=== PATIENT | female | born 1985 | race Two or more races ===

== ENCOUNTER 2016-11-24 16:32 | Outpatient (CLI) | payer BC, OTHER ==
[~2016-11-24] VITALS: Ht 165.1 cm; Wt 95.5 kg
[~2016-11-24 16:32] MED LIST: IRON1TAB62 PO; PREN1TAB27 PO
[2016-11-24 17:05] VITALS: BP 132/78
[2016-11-24 17:55] LABS: ASPARTATE AMINO TRANSFERASE 42 U/L (15-37); BLOOD UREA NITROGEN 15 mg/dL (7-18)
[2016-11-24 18:01] LABS: HEMOGLOBIN 10.9 g/dL (11.7-16.4)
[2016-11-24 18:02] LABS: DIFF TOTAL CELLS COUNTED 100 CELL DIFF
[2016-11-24 18:04] LABS: VERIFY COUNTS? YES
[2016-11-24 18:05] LABS: GIANT PLATELETS 2+
== END 2016-11-24 19:08 | disposition home or self-care (01) ==
LOC: LDOP 16:32
PROVIDERS: ATTEND Obstetrics & Gynecology
DX: O13.3 Gestational [pregnancy-induced] hypertension without significant proteinuria, third trimester (principal); O24.113 Pre-existing type 2 diabetes mellitus, in pregnancy, third trimester; Z3A.36 36 weeks gestation of pregnancy
CPT/HCPCS: 36415; 59025; 80053; 81001; 81050; 82248; 82570; 84156; 84550; 85025; 99211; G0463

== ENCOUNTER 2016-11-26 10:54 | Outpatient (CLI) | payer OTHER ==
[~2016-11-26] VITALS: Ht 165.1 cm; Wt 95.5 kg
[2016-11-26 11:16] VITALS: BP 136/79
== END 2016-11-26 12:50 | disposition home or self-care (01) ==
LOC: LDOP 10:54
PROVIDERS: ATTEND Obstetrics & Gynecology
DX: O24.419 Gestational diabetes mellitus in pregnancy, unspecified control (principal); O12.03 Gestational edema, third trimester; O13.3 Gestational [pregnancy-induced] hypertension without significant proteinuria, third trimester; Z3A.36 36 weeks gestation of pregnancy
CPT/HCPCS: 59025; 99211; G0463

== ENCOUNTER 2016-11-30 07:08 | Inpatient (IN) | payer OTHER ==
[~2016-11-30] VITALS: Ht 165.1 cm; Wt 93.2 kg
[2016-11-30] MEDS: D5%-LACTATED RINGERS 1,000 ML IV SCH ×4 (08:19→22:58)
[2016-11-30] MEDS ORDERED: OXYTOCIN 30U/ 0.9% NaCL 500ML 500 ML IV ONE (08:19)
[2016-11-30] MEDS ORDERED: OXYTOCIN 30U/ 0.9% NaCL 500ML 500 ML IV PRN (08:19)
[2016-11-30] MEDS ORDERED: FENTANYL PF 100 MCG/2ML IV PRN (08:30)
[2016-11-30] MEDS ORDERED: TERBUTALINE 1 MG/ML, 1ML IVPush PRN (08:30)
[2016-11-30] MEDS ORDERED: ONDANSETRON 2MG/ML, 2ML IVPush PRN (08:30)
[2016-11-30] MEDS ORDERED: FENTANYL PF 100 MCG/2ML IVPush PRN (08:30)
[2016-11-30] MEDS ORDERED: OXYTOCIN 30U/ 0.9% NaCL 500ML 500 ML ONE ×2 (08:34→23:06)
[2016-11-30] MEDS: LACTATED RINGERS 1,000 ML IV SCH ×4 (08:40→23:17)
[2016-11-30] MEDS ORDERED: PENICILLIN GK 5,000,000 UNITS in DEXTROSE 5% 100 ML IVPB ONE (09:00)
[2016-11-30 09:01] VITALS: BP 145/97
[2016-11-30 09:42] LABS: HEMOGLOBIN 11.2 g/dL (11.7-16.4)
[2016-11-30 10:58] LABS: ASPARTATE AMINO TRANSFERASE 27 U/L (15-37); BLOOD UREA NITROGEN 13 mg/dL (7-18)
[2016-11-30] MEDS ORDERED: FENTANYL/BUPIV./NS/PF 250 ML EPIDCONT ONE ×2 (12:23→12:25)
[2016-11-30] MEDS ORDERED: LIDOCAINE/PF 1.5%-EPI 1:200K, 30ML ONE ×2 (12:24→12:25)
[2016-11-30] MEDS ORDERED: LIDOCAINE 1%, 20ML ONE (12:25)
[2016-11-30] MEDS: PENICILLIN GK 2,500,000 UNITS in DEXTROSE 5% 100 ML IVPB SCH ×3 (13:15→20:46)
[2016-11-30] MEDS ORDERED: CALCIUM CARBONATE 500 MG TAB.CHEW ONE (18:18)
[2016-11-30] MEDS ORDERED: CALCIUM CARBONATE 500 MG TAB.CHEW PO PRN (18:30)
[2016-11-30] MEDS: FENTANYL/BUPIV./NS/PF 250 ML EPIDCONT SCH (20:42)
[2016-11-30] MEDS ORDERED: NALOXONE 0.4 MG/ML, 1ML IVPush PRN (21:00)
[2016-11-30] MEDS ORDERED: LACTATED RINGERS 1,000 ML IVBOLUS PRN (21:00)
[2016-11-30] MEDS ORDERED: EPHEDRINE 50 MG/ML, 1ML IVPush PRN (21:00)
[2016-11-30] MEDS ORDERED: NEWBORN KIT ONE (22:32)
[2016-11-30] MEDS ORDERED: CARBOPROST TROMETHAMINE 250 MCG/ML, 1ML IM ONE ×2 (23:20→23:30)
[2016-11-30] MEDS: OXYTOCIN 30U/ 0.9% NaCL 500ML 500 ML IV SCH (23:47)
[2016-12-01] MEDS ORDERED: ACETAMINOPHEN 325 MG TABLET PO PRN ×2
[2016-12-01] MEDS ORDERED: IBUPROFEN 600 MG TABLET PO PRN
[2016-12-01] MEDS: D5%-LACTATED RINGERS 1,000 ML IV SCH ×2 (00:19→05:38)
[2016-12-01] MEDS: PENICILLIN GK 2,500,000 UNITS in DEXTROSE 5% 100 ML IVPB SCH (00:30)
[2016-12-01 01:10] VITALS: BP 133/94
[2016-12-01 03:10] VITALS: BP 133/91
[2016-12-01] MEDS: HYDROcodone/APAP 5/325 TABLET PO PRN ×4 (03:10→23:07)
[2016-12-01] MEDS: LACTATED RINGERS 1,000 ML IV SCH (03:11)
[2016-12-01] MEDS ORDERED: MISOPROSTOL 200 MCG TABLET PR ONE (04:30)
[2016-12-01 07:30] LABS: DIFF TOTAL CELLS COUNTED 100 CELL DIFF
[2016-12-01 07:40] VITALS: BP 116/79
[2016-12-01 07:57] LABS: ANISOCYTOSIS 1+
[2016-12-01 07:58] LABS: VERIFY COUNTS? YES
[2016-12-01] MEDS: PRENATAL VIT/IRON/FA 1 EACH TABLET PO SCH (09:00)
[2016-12-01] MEDS: OXYTOCIN 30U/ 0.9% NaCL 500ML 500 ML IV SCH (09:47)
[2016-12-01] MEDS: FERROUS GLUCONATE 324 MG TABLET PO SCH ×2 (11:00→17:55)
[2016-12-01 12:10] VITALS: BP 133/77
[2016-12-01] MEDS ORDERED: DIPH,PERTUSS(ACELL),TET VAC/PF NC IM-VACC ONE (13:00)
[2016-12-01] MEDS ORDERED: MEASLES,MUMPS&RUBELLA VACC/PF 0.5 ML SQ-VACC ONE (13:00)
[2016-12-01 16:25] VITALS: BP 128/75
[2016-12-01] MEDS: FENTANYL/BUPIV./NS/PF 250 ML EPIDCONT SCH (17:32)
[2016-12-01 19:37] VITALS: BP 133/91
[2016-12-02 03:10] VITALS: BP 112/66
[2016-12-02] MEDS: HYDROcodone/APAP 5/325 TABLET PO PRN ×3 (04:27→21:31)
[2016-12-02] MEDS: FERROUS GLUCONATE 324 MG TABLET PO SCH ×2 (08:00→17:31)
[2016-12-02 08:05] VITALS: BP 127/87
[2016-12-02] MEDS: PRENATAL VIT/IRON/FA 1 EACH TABLET PO SCH (09:00)
[2016-12-02 12:15] VITALS: BP 125/86
[2016-12-02] MEDS: FENTANYL/BUPIV./NS/PF 250 ML EPIDCONT SCH (14:22)
[2016-12-02 16:05] VITALS: BP 130/83
[2016-12-02] MEDS: DOCUSATE 100 MG CAPSULE PO PRN (21:29)
[2016-12-02 21:36] VITALS: BP 125/83
[2016-12-03 00:24] VITALS: BP 119/72
[2016-12-03] MEDS: HYDROcodone/APAP 5/325 TABLET PO PRN ×2 (04:14→10:09)
[2016-12-03 04:19] VITALS: BP 131/88
[2016-12-03 07:38] VITALS: BP 124/74
[2016-12-03 07:43] VITALS: BP 129/87
[2016-12-03] MEDS: DOCUSATE 100 MG CAPSULE PO PRN (08:42)
[2016-12-03] MEDS: PRENATAL VIT/IRON/FA 1 EACH TABLET PO SCH (08:42)
[2016-12-03] MEDS: FERROUS GLUCONATE 324 MG TABLET PO SCH (08:42)
[2016-12-03] MEDS ORDERED: OXYC-302 PO (10:29)
[2016-12-03] MEDS ORDERED: IBUP-1222 PO (10:30)
[2016-12-03] MEDS ORDERED: SENN8.6T4 PO (10:31)
== END 2016-12-03 12:01 | disposition home or self-care (01) | DRG 775 ==
LOC: LDOP 07:08 → LDIP 07:44 → 2NW 12-01 00:40
PROVIDERS: ADMIT Obstetrics & Gynecology; ATTEND Obstetrics & Gynecology
PROC: 0KQM0ZZ Repair Perineum Muscle, Open Approach (ICD-10-PCS; principal; 2016-11-30)
PROC: 10E0XZZ Delivery of Products of Conception, External Approach (ICD-10-PCS; 2016-11-30)
PROC: 3E033VJ Introduction of Other Hormone into Peripheral Vein, Percutaneous Approach (ICD-10-PCS; 2016-11-30)
PROC: 00HU33Z Insertion of Infusion Device into Spinal Canal, Percutaneous Approach (ICD-10-PCS; 2016-11-30)
PROC: 3E0R3CZ (ICD-10-PCS; 2016-11-30)
PROC: 0T9B70Z Drainage of Bladder with Drainage Device, Via Natural or Artificial Opening (ICD-10-PCS; 2016-11-30)
DX: O24.420 Gestational diabetes mellitus in childbirth, diet controlled (principal); Z37.0 Single live birth; O42.92 Full-term premature rupture of membranes, unspecified as to length of time between rupture and onset of labor; O99.824 Streptococcus B carrier state complicating childbirth; O13.4 Gestational [pregnancy-induced] hypertension without significant proteinuria, complicating childbirth; Z3A.37 37 weeks gestation of pregnancy; Z91.041 Radiographic dye allergy status; O70.1 Second degree perineal laceration during delivery; Z23 Encounter for immunization
CPT/HCPCS: 36415; 80053; 81001; 82962; 84550; 85025; 86850; 86900; 90715; J2540; J3490; J2590; J3010; J7120; J7121

== ENCOUNTER 2017-04-15 09:21 | Emergency (ER) | payer OTHER ==
[~2017-04-15] VITALS: Ht 165.1 cm; Wt 79.8 kg
[~2017-04-15 09:21] MED LIST changes: +IBUP-1222 PO; +OXYC-302 PO; +SENN8.6T4 PO
[2017-04-15 09:24] VITALS: BP 149/100
[2017-04-15] MEDS ORDERED: DIAZEPAM 5 MG TABLET ONE (09:54)
[2017-04-15] MEDS ORDERED: KETOROLAC 30 MG/1 ML ONE (09:54)
[2017-04-15] MEDS ORDERED: DIAZEPAM 5 MG TABLET PO ONE (10:00)
[2017-04-15] MEDS ORDERED: KETOROLAC 30 MG/1 ML IM ONE (10:00)
== END 2017-04-15 10:53 | disposition home or self-care (01) ==
LOC: ED 10:34
DX: S16.1XXA Strain of muscle, fascia and tendon at neck level, initial encounter (principal); M54.5 Low back pain; M19.90 Unspecified osteoarthritis, unspecified site; V43.52XA Car driver injured in collision with other type car in traffic accident, initial encounter; Y93.89 Activity, other specified; Y99.8 Other external cause status; Y92.488 Other paved roadways as the place of occurrence of the external cause
CPT/HCPCS: 72020; 72050; 72072; 72110; 96372; 99284; J1885

== ENCOUNTER → 2017-06-12 | Outpatient (CLI) | payer OTHER ==
[~2017-06-12] MED LIST changes: +SENN-87 PO; -SENN8.6T4 PO
== END | disposition home or self-care (01) ==
LOC: CFH 06:52
PROVIDERS: ATTEND Chiropractor
DX: M51.27 Other intervertebral disc displacement, lumbosacral region (principal); M48.07 Spinal stenosis, lumbosacral region; M79.605 Pain in left leg
CPT/HCPCS: 72146; 72148

== ENCOUNTER → 2017-09-05 | Outpatient (CLI) | payer OTHER ==
[2017-09-05 08:33] LABS: BASOPHILS # (AUTO) 0.04 x10^3/uL (0-0.1); BASOPHILS % (AUTO) 0 % (0-1); EOSINOPHILS # (AUTO) 0.14 x10^3/uL (0-0.4); EOSINOPHILS % (AUTO) 1 % (1-7); LYMPHOCYTES # (AUTO) 3.12 x10^3/uL (1-3.4); LYMPHOCYTES % (AUTO) 28 % (22-44); MD NO; MEAN CORPUSCULAR HEMOGLOBIN 25.3 pg (27.0-34.8); MEAN CORPUSCULAR HGB CONC 32.8 g/dL (32.4-35.8); MEAN CORPUSCULAR VOLUME 77.3 fL (80-100); MEAN PLATELET VOLUME 9.1 fL (7.4-10.4); MICROSCOPIC NOT IND; MONOCYTES # (AUTO) 0.46 x10^3/uL (0.2-0.8); MONOCYTES % (AUTO) 4 % (2-9); NEUTROPHILS # (AUTO) 7.47 x10^3/uL (1.8-6.8); NEUTROPHILS % (AUTO) 67 % (42-75); PLATELET COUNT 289 x10^3/uL (130-400); RED BLOOD COUNT 4.96 x10^6/uL (3.82-5.3); RED CELL DISTRIBUTION WIDTH 16.9 % (9.6-15.2)
[2017-09-05 08:45] LABS: ALANINE AMINOTRANSFERASE 21 U/L (12-78); ALBUMIN 3.9 g/dL (3.4-5.0); ANION GAP 5 mmol/L (5-15); CALCIUM 8.7 mg/dL (8.5-10.1); CHLORIDE 106 mmol/L (98-107); CREATININE 0.75 mg/dL (0.55-1.02)
[2017-09-05 08:56] LABS: ALKALINE PHOSPHATASE 103 U/L (45-117); BILIRUBIN,TOTAL 0.4 mg/dL (0.2-1.0); CHOL/HDL RATIO 3.7; CHOLESTEROL, TOTAL 147 mg/dL (140-239); HDL CHOL % 27 % (28-40); HDL CHOLESTEROL (DIRECT) 40 mg/dL (40-60); LDL CHOLESTEROL,CALCULATED 73 mg/dL (54-169); LDL/HDL RATIO 1.8 (0.5-3.0); TOTAL PROTEIN 8.2 g/dL (6.4-8.2); TRIGLYCERIDES 170 mg/dL (50-200); VLDL CHOLESTEROL 34 mg/dL (0-25)
== END ==
LOC: CVU 06:56
PROVIDERS: ATTEND Family Medicine
DX: R01.1 Cardiac murmur, unspecified (principal)
CPT/HCPCS: 36415; 80053; 80061; 81003; 84443; 85025; 93306

== ENCOUNTER 2018-09-15 11:54 | Inpatient (IN) | payer OTHER ==
[~2018-09-15] VITALS: Ht 165.1 cm; Wt 85.1 kg
[~2018-09-15 11:54] MED LIST changes: -SENN-87 PO; +SENN-88 PO
--- NOTE | 2018-09-15 12:08 | NUR ---
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 PT WEARS EYE GLASSES AND DOES NOT HAVE THEM WITH HER.
[2018-09-15] MEDS ORDERED: BIRTH CONTROL PILL (12:32)
--- NOTE | 2018-09-15 12:33 | NUR ---
FIRST CONTACT WITH PT. PT C/O ALARCON X 2 WEEKS WITH NAUSEA/DIZZINESS WITH DOUBLE VISION SINCE YESTERDAY. PT DENIES V/D AT THIS TIME. PT AOX4. RESPS EVEN AND UNLABORED. NEURO INTACT. NO HX OF CARDIAC. PT'S FAMILY AT BEDSIDE. PA AT BEDSIDE TO EXPLAIN POCT AT THIS TIME. BP AND SPO2 MONITORS IN PLACE.
--- NOTE | 2018-09-15 12:57 | NUR ---
EDMD AT BEDSIDE TO ASSESS AT THIS TIME.
[2018-09-15] MEDS ORDERED: ONDANSETRON 2MG/ML, 2ML ONE (13:08)
[2018-09-15] MEDS ORDERED: MORPHINE SULFATE 4 MG/ML, 1ML ONE ×2 (13:08→14:56)
[2018-09-15] MEDS: MORPHINE SULFATE 4 MG/ML, 1ML IVPush PRN ×5 (13:11→23:30)
--- NOTE | 2018-09-15 13:18 | NUR ---
PRECEPTOR NOTE: PIV PLACED. PT MEDICATED PER EMAR, TOLERATED WELL. PT A&O, RESPS EVEN AND UNLABORED. AWAITING MRI AND DISPO AT THIS TIME.
[2018-09-15 13:22] LABS: BASOPHILS # (AUTO) 0.08 x10^3/uL (0-0.1); BASOPHILS % (AUTO) 1 % (0-1); EOSINOPHILS % (AUTO) 1 % (1-7); LYMPHOCYTES # (AUTO) 2.84 x10^3/uL (1-3.4); LYMPHOCYTES % (AUTO) 31 % (22-44); MD NO; MEAN CORPUSCULAR HEMOGLOBIN 28.8 pg (27.0-34.8); MEAN CORPUSCULAR HGB CONC 33.8 g/dL (32.4-35.8); MEAN CORPUSCULAR VOLUME 85.1 fL (80-100); MEAN PLATELET VOLUME 8.9 fL (7.4-10.4); MONOCYTES # (AUTO) 0.43 x10^3/uL (0.2-0.8); MONOCYTES % (AUTO) 5 % (2-9); NEUTROPHILS # (AUTO) 5.66 x10^3/uL (1.8-6.8); NEUTROPHILS % (AUTO) 62 % (42-75); PLATELET COUNT 283 x10^3/uL (130-400); RED BLOOD COUNT 4.93 x10^6/uL (3.82-5.3); RED CELL DISTRIBUTION WIDTH 13.5 % (9.6-15.2)
--- NOTE | 2018-09-15 13:22 | NUR ---
mri paged to collect pt.
[2018-09-15] MEDS ORDERED: ONDANSETRON 2MG/ML, 2ML IVPush ONE (13:30)
--- NOTE | 2018-09-15 13:30 | NUR ---
PT TO MRI.
[2018-09-15 13:33] LABS: ALBUMIN 3.8 g/dL (3.4-5.0); ANION GAP 6 mmol/L (5-15); C-REACTIVE PROTEIN, QUANT 0.92 mg/dL (0.02-0.49); CALCIUM 8.9 mg/dL (8.5-10.1); CHLORIDE 109 mmol/L (98-107)
[2018-09-15 13:38] LABS: CREATININE 0.72 mg/dL (0.55-1.02)
--- NOTE | 2018-09-15 14:07 | NUR ---
pt remains in MRI
[2018-09-15] MEDS ORDERED: GADOBUTROL 7.5 MMOL/7.5 ML PFS ONE (14:19)
--- NOTE | 2018-09-15 14:42 | NUR ---
PT BACK TO ROOM FROM MRI. PT STATES PAIN LEVEL 6/10 NOW. PT REQUESTING PAIN MED. PA AND EDMD NOTIFIED. PT AOX4. RESPS EVEN AND UNLABORED.
--- NOTE | 2018-09-15 14:59 | NUR ---
PT A&O, RESPS EVEN AND UNLABORED. PT MEDICATED PER EMAR, TOLERATED WELL. AWAITING MRI RESULTS AND DISPO.
--- NOTE | 2018-09-15 15:22 | NUR ---
PT RESTING IN [facility] [place] PT AOX4. RESPS EVEN AND UNLABORED. LAB AT BEDSIDE. BP AND SPO2 MONITORS IN PLACE. CALL LIGHT WITHIN REACH. ALL RESULTS BACK. AWAITING ADMIT.
--- NOTE | 2018-09-15 15:30 | NUR ---
HOSPITALIST AT BEDSIDE TO ADMIT PT. PT A&O, RESPS EVEN AND UNLABORED. JUAN J.
--- NOTE | 2018-09-15 15:41 | NUR ---
REPORT CALLED TO RECEIVING KIM MENJIVAR PT AWAITING TRANSPORT TO ROOM 339.
--- NOTE | 2018-09-15 15:54 | NUR ---
CT CAME TO COLLECT PT , PT REPORTS ANAPHYLACTIC RXN TO CT CONTRAST (2 YEARS AGO). ARCADIO VANEGAS NOTIFIED. CTA TO BE CANCELLED AND REPLACED WITH MRA ORDER. CT CALLED TO NOTIFY.
[2018-09-15] MEDS ORDERED: ENALAPRILAT 1.25 MG/ML, 2ML IVPush PRN (16:00)
[2018-09-15] MEDS ORDERED: BISACODYL 10 MG SUPP PR PRN (16:00)
[2018-09-15] MEDS ORDERED: KETOROLAC 30 MG/1 ML IV PRN (16:00)
[2018-09-15] MEDS ORDERED: POLYETHYLENE GLYCOL 17 GM PACKET PO PRN (16:00)
[2018-09-15] MEDS ORDERED: LORazepam 2 MG/ML, 1ML IVPush PRN (16:00)
[2018-09-15] MEDS ORDERED: LABETALOL 5MG/ML, 20ML IVPush PRN (16:00)
[2018-09-15] MEDS ORDERED: ONDANSETRON ODT 4 MG PO PRN (16:00)
[2018-09-15] MEDS ORDERED: BUTALB/APAP/CAFFEINE 50MG/325MG/40MG PO PRN (16:00)
[2018-09-15] MEDS ORDERED: ONDANSETRON 2MG/ML, 2ML IVPush PRN (16:00)
[2018-09-15] MEDS ORDERED: ACETAMINOPHEN 325 MG TABLET PO PRN (16:00)
[2018-09-15] MEDS ORDERED: METOCLOPRAMIDE 5 MG/ML, 2ML IVPush PRN (16:00)
--- NOTE | 2018-09-15 16:02 | NUR ---
PT REPORTS PAIN LEVEL IMPROVED TO LEVEL 2/10 FOLLOWING SECOND DOSE MORPHINE. PT A&O, RESPS EVEN AND UNLABORED, NADN. PT UPDATED WITH POC. PT TRANSPORTED UPSTAIRS WITH CELL PHONE AND CLOTHES, DENIES HAVING ANY OTHER BELONGINGS.
--- NOTE | 2018-09-15 16:05 | NUR ---
LATE ENTRY FOR 1605: PT TRANSPORTED TO ROOM 339 WITHOUT INCIDENT. RECEIVING KIM GOULD CALLED TO UPDATE WITH PT REPORT ALLERGY TO CT CONTRAST AND ANTICIPATED PLAN FOR MRA INSTEAD OF CT.
[2018-09-15] MEDS ORDERED: DIPHENHYDRAMINE 50 MG/ML, 1ML IVPush PRN (16:30)
[2018-09-15] MEDS ORDERED: GADOBUTROL 7.5 MMOL/7.5 ML VIAL ONE (17:02)
[2018-09-15 17:40] VITALS: BP 136/93
[2018-09-15 19:33] VITALS: BP 138/88
[2018-09-16 01:04] VITALS: BP 138/87
[2018-09-16 04:41] LABS: BASOPHILS # (AUTO) 0.07 x10^3/uL (0-0.1); BASOPHILS % (AUTO) 1 % (0-1); EOSINOPHILS # (AUTO) 0.17 x10^3/uL (0-0.4); EOSINOPHILS % (AUTO) 2 % (1-7); LYMPHOCYTES # (AUTO) 2.81 x10^3/uL (1-3.4); LYMPHOCYTES % (AUTO) 36 % (22-44); MD NO; MEAN CORPUSCULAR HEMOGLOBIN 28.7 pg (27.0-34.8); MEAN CORPUSCULAR HGB CONC 33.7 g/dL (32.4-35.8); MEAN CORPUSCULAR VOLUME 85.2 fL (80-100); MEAN PLATELET VOLUME 9.1 fL (7.4-10.4); MONOCYTES # (AUTO) 0.47 x10^3/uL (0.2-0.8); MONOCYTES % (AUTO) 6 % (2-9); NEUTROPHILS % (AUTO) 55 % (42-75); PLATELET COUNT 269 x10^3/uL (130-400); RED BLOOD COUNT 4.41 x10^6/uL (3.82-5.3); RED CELL DISTRIBUTION WIDTH 13.9 % (9.6-15.2)
[2018-09-16 04:51] LABS: ANION GAP 6 mmol/L (5-15); CALCIUM 8.5 mg/dL (8.5-10.1); CHLORIDE 106 mmol/L (98-107)
[2018-09-16 04:52] LABS: CREATININE 0.66 mg/dL (0.55-1.02)
[2018-09-16] MEDS: ASPIRIN 325 MG TABLET EC PO SCH (05:58)
[2018-09-16 06:54] VITALS: BP 137/86
[2018-09-16] MEDS: MORPHINE SULFATE 4 MG/ML, 1ML IVPush PRN (08:08)
[2018-09-16] MEDS: DOCUSATE 100 MG CAPSULE PO SCH (08:08)
[2018-09-16] MEDS ORDERED: VALPROATE SODIUM 1,000 MG in DEXTROSE 5% 100 ML IV ONE (12:00)
[2018-09-16] MEDS ORDERED: VALPROATE SODIUM 100 MG/ML, 5ML IVPB ONE (12:00)
[2018-09-16 12:53] VITALS: BP 143/87
[2018-09-16 19:44] VITALS: BP 133/89
[2018-09-16] MEDS ORDERED: VALPROATE SODIUM 100 MG/ML, 5ML IVPB SCH (21:00)
[2018-09-16] MEDS: VALPROATE SODIUM 500 MG in DEXTROSE 5% 100 ML IV SCH (21:32)
[2018-09-17 00:50] VITALS: BP 150/90
[2018-09-17] MEDS: ASPIRIN 325 MG TABLET EC PO SCH (06:26)
[2018-09-17 06:54] VITALS: BP 125/82
[2018-09-17] MEDS: VALPROATE SODIUM 500 MG in DEXTROSE 5% 100 ML IV SCH (08:17)
[2018-09-17] MEDS: DOCUSATE 100 MG CAPSULE PO SCH (08:17)
[2018-09-17] MEDS ORDERED: ACET325T14 PO (10:27)
[2018-09-17] MEDS ORDERED: VALP250C59 PO (10:27)
[2018-09-17 14:12] LABS: RAPID PLASMA REAGIN Nonreactive (Nonreactive)
[2018-09-18 12:43] LABS: ANA SCREEN POSITIVE (Negative)
[2018-09-18 12:44] LABS: ANTI-NUCLEAR ANTIBODY PATTERN HOMOGENOUS
== END 2018-09-17 12:15 | disposition home or self-care (01) | DRG 123 ==
LOC: ED 15:05 → 3NW 15:14 → DCLOUNGE 09-17 11:58
PROVIDERS: ADMIT Hospitalist; ATTEND Hospitalist
DX: H49.21 Sixth [abducent] nerve palsy, right eye (principal); G35 Multiple sclerosis; I10 Essential (primary) hypertension; J00 Acute nasopharyngitis [common cold]; K59.00 Constipation, unspecified; Z80.51 Family history of malignant neoplasm of kidney; Z83.3 Family history of diabetes mellitus; Z86.32 Personal history of gestational diabetes
CPT/HCPCS: 36415; 70543; 70544; 70546; 70547; 70551; 70553; 80048; 82040; 82164; 84703; 85025; 85549; 85651; 86038; 86039; 86140; 86147; 86256; 86592; 96374; 96375; 96376; A9585; G0378; J1885; J2405; J1200; J2060; J2765

== ENCOUNTER → 2018-09-18 | Outpatient (CLI) | payer OTHER ==
[~2018-09-18] MED LIST changes: +ACET325T14 PO; +BIRTH CONTROL PILL; +VALP250C59 PO
[2018-09-18 12:10] LABS: BASOPHILS % (AUTO) 1 % (0-1); EOSINOPHILS # (AUTO) 0.06 x10^3/uL (0-0.4); EOSINOPHILS % (AUTO) 1 % (1-7); LYMPHOCYTES # (AUTO) 2.54 x10^3/uL (1-3.4); LYMPHOCYTES % (AUTO) 24 % (22-44); MD NO; MEAN CORPUSCULAR HEMOGLOBIN 27.5 pg (27.0-34.8); MEAN CORPUSCULAR HGB CONC 32.2 g/dL (32.4-35.8); MEAN CORPUSCULAR VOLUME 85.4 fL (80-100); MEAN PLATELET VOLUME 8.8 fL (7.4-10.4); MONOCYTES # (AUTO) 0.37 x10^3/uL (0.2-0.8); MONOCYTES % (AUTO) 4 % (2-9); NEUTROPHILS # (AUTO) 7.51 x10^3/uL (1.8-6.8); NEUTROPHILS % (AUTO) 71 % (42-75); PLATELET COUNT 303 x10^3/uL (130-400); RED BLOOD COUNT 4.85 x10^6/uL (3.82-5.3); RED CELL DISTRIBUTION WIDTH 13.5 % (9.6-15.2)
[2018-09-18 12:25] LABS: ALANINE AMINOTRANSFERASE 70 U/L (12-78); ANION GAP 8 mmol/L (5-15); CALCIUM 9.2 mg/dL (8.5-10.1); CHLORIDE 104 mmol/L (98-107)
[2018-09-18 12:36] LABS: ALKALINE PHOSPHATASE 115 U/L (45-117); BILIRUBIN,TOTAL 0.5 mg/dL (0.2-1.0); CREATININE 0.67 mg/dL (0.55-1.02); FREE T4 (FREE THYROXINE) 0.95 ng/dL (0.76-1.46); TOTAL PROTEIN 8.5 g/dL (6.4-8.2)
[2018-09-18 13:11] LABS: HEMOGLOBIN A1C 5.4 % (4.2-6.3)
[2018-09-20 18:23] LABS: ANA SCREEN POSITIVE (Negative)
== END | disposition home or self-care (01) ==
LOC: LAB 11:43
PROVIDERS: ATTEND Ophthalmology
DX: H50.89 Other specified strabismus (principal); H53.2 Diplopia; H49.00 Third [oculomotor] nerve palsy, unspecified eye
CPT/HCPCS: 36415; 80053; 82164; 83036; 83519; 83520; 84439; 84443; 84445; 84480; 85025; 85549; 86038; 86039

== ENCOUNTER 2018-11-27 14:43 | Emergency (ER) | payer OTHER ==
[~2018-11-27] VITALS: Ht 165.1 cm; Wt 83.0 kg
--- NOTE | 2018-11-27 15:20 | NUR ---
THIS IS A 33 YO FEMALE WHO PRESENTS TO THE ER C/O MIDLINE NOSE TO RIGHT CHEEK DIMINISHED SENSATION. PT STATES SHE CAN FEEL PRESSURE BUT CANNOT DISTINGUISH BETWEEN SHARP AND DULL SENSATIONS. PT HAS FACIAL SYMMETRY AND IS ABLE TO MOVE HER FACE W/O DIFFICULTY. PT AO X 4. SKIN PWD. RESP EVEN AND EQAUL. PT ON CONT BP AND O2 MONIOTRS. CALL LIGHT WITHIN REACH. WILL CONT TO MONITOR PT.
[2018-11-27 15:59] LABS: BASOPHILS # (AUTO) 0.06 x10^3/uL (0-0.1); BASOPHILS % (AUTO) 1 % (0-1); EOSINOPHILS % (AUTO) 2 % (1-7); LYMPHOCYTES # (AUTO) 3.16 x10^3/uL (1-3.4); LYMPHOCYTES % (AUTO) 32 % (22-44); MD NO; MEAN CORPUSCULAR HEMOGLOBIN 29.2 pg (27.0-34.8); MEAN CORPUSCULAR HGB CONC 34.2 g/dL (32.4-35.8); MEAN CORPUSCULAR VOLUME 85.2 fL (80-100); MEAN PLATELET VOLUME 9.2 fL (7.4-10.4); MONOCYTES # (AUTO) 0.41 x10^3/uL (0.2-0.8); MONOCYTES % (AUTO) 4 % (2-9); NEUTROPHILS # (AUTO) 6.19 x10^3/uL (1.8-6.8); NEUTROPHILS % (AUTO) 62 % (42-75); PLATELET COUNT 280 x10^3/uL (130-400); RED BLOOD COUNT 4.71 x10^6/uL (3.82-5.3)
[2018-11-27 16:08] LABS: ALANINE AMINOTRANSFERASE 21 U/L (12-78); ALBUMIN 3.9 g/dL (3.4-5.0); ANION GAP 6 mmol/L (5-15); CHLORIDE 109 mmol/L (98-107); CREATININE 0.77 mg/dL (0.55-1.02)
--- NOTE | 2018-11-27 16:10 | NUR ---
PT TO MRI VIA [facility] AT THIS TIME.
[2018-11-27] MEDS ORDERED: SODIUM CHLORIDE FLUSH 10ML SYR IVF ONE (16:30)
[2018-11-27 16:33] LABS: BILIRUBIN,TOTAL 0.3 mg/dL (0.2-1.0)
[2018-11-27 16:34] LABS: ALKALINE PHOSPHATASE 77 U/L (45-117); FOLATE LEVEL 15.9 ng/mL (3.1-17.5); TOTAL PROTEIN 7.7 g/dL (6.4-8.2)
[2018-11-27] MEDS ORDERED: GADOBUTROL 7.5 MMOL/7.5 ML PFS ONE (16:51)
[2018-11-27 16:55] LABS: HCT (SEDRATE) 40.2 % (34.6-47.8)
--- NOTE | 2018-11-27 17:27 | NUR ---
HILARY ARRIAGA AT BEDSIDE FOR RECHECK/EXPLANATION OF RESULTS. PT CURRENTLY RESTING ON GURNEY. NAD NOTED. SKIN PWD. RESP EVEN AND EQUAL. CALL LIGHT WITHIN REACH. WILL CONT TO MONITOR PT.
[2018-11-27 18:14] VITALS: BP 137/84
[2018-11-28 14:38] LABS: RAPID PLASMA REAGIN Nonreactive (Nonreactive)
[2018-11-29 18:10] LABS: ANA SCREEN POSITIVE (Negative)
[2018-11-29 18:11] LABS: ANTI-NUCLEAR ANTIBODY PATTERN HOMOGENOUS
== END 2018-11-27 18:16 | disposition home or self-care (01) ==
LOC: ED 17:39
DX: S04 Injury of cranial nerve (principal); M19.90 Unspecified osteoarthritis, unspecified site; I10 Essential (primary) hypertension; Z88.8 Allergy status to other drugs, medicaments and biological substances; X58.XXXA Exposure to other specified factors, initial encounter; Y93.89 Activity, other specified; Y92.89 Other specified places as the place of occurrence of the external cause; Y99.8 Other external cause status
CPT/HCPCS: 36415; 70543; 70553; 80053; 82164; 82607; 82746; 82787; 83520; 85025; 85549; 85651; 86038; 86140; 86147; 86256; 86480; 86592; 86618; 86780; 99284; A9585

== ENCOUNTER → 2019-01-15 | Outpatient (CLI) | payer OTHER ==
[2019-01-15 07:29] LABS: BASOPHILS # (AUTO) 0.07 x10^3/uL (0-0.1); BASOPHILS % (AUTO) 1 % (0-1); EOSINOPHILS # (AUTO) 0.29 x10^3/uL (0-0.4); EOSINOPHILS % (AUTO) 3 % (1-7); LYMPHOCYTES # (AUTO) 2.69 x10^3/uL (1-3.4); LYMPHOCYTES % (AUTO) 28 % (22-44); MD NO; MEAN CORPUSCULAR HGB CONC 33.1 g/dL (32.4-35.8); MEAN CORPUSCULAR VOLUME 87.8 fL (80-100); MEAN PLATELET VOLUME 8.3 fL (7.4-10.4); MONOCYTES # (AUTO) 0.63 x10^3/uL (0.2-0.8); MONOCYTES % (AUTO) 7 % (2-9); NEUTROPHILS # (AUTO) 5.97 x10^3/uL (1.8-6.8); NEUTROPHILS % (AUTO) 62 % (42-75); PLATELET COUNT 275 x10^3/uL (130-400); RED CELL DISTRIBUTION WIDTH 13.5 % (9.6-15.2)
[2019-01-15 07:38] LABS: ANION GAP 10 mmol/L (5-15); CALCIUM 9.1 mg/dL (8.5-10.1); CHLORIDE 107 mmol/L (98-107)
[2019-01-15 07:41] LABS: ALANINE AMINOTRANSFERASE 85 U/L (12-78); ALKALINE PHOSPHATASE 88 U/L (45-117); BILIRUBIN,TOTAL 0.3 mg/dL (0.2-1.0); CREATININE 0.93 mg/dL (0.55-1.02)
[2019-01-15 08:09] LABS: INTERNATIONAL NORMALIZED RATIO 1.09 (0.93-1.1); PROTHROMBIN TIME 11.4 Seconds (9.6-11.5)
== END | disposition home or self-care (01) ==
LOC: LAB 07:11
PROVIDERS: ATTEND Psychiatry & Neurology Neurology
DX: H53.2 Diplopia (principal); H04.123 Dry eye syndrome of bilateral lacrimal glands; H49.22 Sixth [abducent] nerve palsy, left eye
CPT/HCPCS: 36415; 80053; 85025; 85610; 85730

== ENCOUNTER 2019-01-18 07:34 | Outpatient (CLI) | payer OTHER ==
[2019-01-18 11:58] LABS: GLUCOSE, CSF 45 mg/dL (40-80); TOTAL PROTEIN,CSF 31 mg/dL (15-45)
[2019-01-18 12:14] LABS: BASOPHILS # (AUTO) 0.04 x10^3/uL (0-0.1); BASOPHILS % (AUTO) 1 % (0-1); EOSINOPHILS # (AUTO) 0.13 x10^3/uL (0-0.4); EOSINOPHILS % (AUTO) 2 % (1-7); LYMPHOCYTES % (AUTO) 32 % (22-44); MD NO; MEAN CORPUSCULAR HEMOGLOBIN 28.5 pg (27.0-34.8); MEAN CORPUSCULAR HGB CONC 32.1 g/dL (32.4-35.8); MEAN CORPUSCULAR VOLUME 88.9 fL (80-100); MEAN PLATELET VOLUME 8.6 fL (7.4-10.4); MONOCYTES # (AUTO) 0.36 x10^3/uL (0.2-0.8); MONOCYTES % (AUTO) 5 % (2-9); NEUTROPHILS # (AUTO) 4.89 x10^3/uL (1.8-6.8); NEUTROPHILS % (AUTO) 61 % (42-75); PLATELET COUNT 295 x10^3/uL (130-400); RED BLOOD COUNT 4.68 x10^6/uL (3.82-5.3); RED CELL DISTRIBUTION WIDTH 13.5 % (9.6-15.2)
[2019-01-18 12:43] LABS: ALANINE AMINOTRANSFERASE 61 U/L (12-78); ALBUMIN 4.1 g/dL (3.4-5.0); ANION GAP 10 mmol/L (5-15); CALCIUM 8.8 mg/dL (8.5-10.1); CHLORIDE 106 mmol/L (98-107); CREATININE 1.01 mg/dL (0.55-1.02)
[2019-01-18 13:06] LABS: HCT (SEDRATE) 41.6 % (34.6-47.8)
[2019-01-18 13:07] LABS: ALKALINE PHOSPHATASE 74 U/L (45-117); BILIRUBIN,TOTAL 0.3 mg/dL (0.2-1.0); TOTAL PROTEIN 8.2 g/dL (6.4-8.2)
[2019-01-21 15:41] LABS: RAPID PLASMA REAGIN Nonreactive (Nonreactive)
[2019-01-22 14:20] LABS: ANTI-NUCLEAR ANTIBODY PATTERN HOMOGENOUS
[2019-01-22 14:21] LABS: ANA SCREEN POSITIVE (Negative)
== END 2019-01-18 23:59 | disposition home or self-care (01) ==
LOC: RAD 07:34
PROVIDERS: ATTEND Psychiatry & Neurology Neurology
DX: A69.22 Other neurologic disorders in Lyme disease (principal); H53.2 Diplopia
CPT/HCPCS: 36415; 62270; 77003; 80053; 82040; 82042; 82164; 82784; 82945; 83873; 84157; 85025; 85549; 85651; 86038; 86039; 86140; 86147; 86592; 86618; 86645; 86695; 86696; 86762; 86777; 86778; 87070; 87075; 87102; 87116; 87205; 87206; 87252; 87476; 87899; 88108; 89051

== ENCOUNTER → 2019-01-30 | Outpatient (CLI) | payer OTHER ==
[2019-01-30 11:18] LABS: ANION GAP 8 mmol/L (5-15); CHLORIDE 107 mmol/L (98-107)
[2019-01-30 11:22] LABS: ALANINE AMINOTRANSFERASE 26 U/L (12-78); ALKALINE PHOSPHATASE 77 U/L (45-117); BILIRUBIN,TOTAL 0.5 mg/dL (0.2-1.0); CREATININE 0.95 mg/dL (0.55-1.02)
== END | disposition home or self-care (01) ==
LOC: LAB 10:47
PROVIDERS: ATTEND Psychiatry & Neurology Neurology
DX: H49.21 Sixth [abducent] nerve palsy, right eye (principal); A69.22 Other neurologic disorders in Lyme disease; Z91.041 Radiographic dye allergy status
CPT/HCPCS: 36415; 80053; 83520; 86618

== ENCOUNTER → 2019-02-15 | Outpatient (CLI) | payer OTHER ==
[~2019-02-15] MED LIST changes: +GADOBUTROL 10 MMOL/10 ML PFS ONE
== END | disposition home or self-care (01) ==
LOC: CFH 07:16
PROVIDERS: ATTEND Psychiatry & Neurology Neurology
DX: G95.9 Disease of spinal cord, unspecified (principal); J44.9 Chronic obstructive pulmonary disease, unspecified
CPT/HCPCS: 72156; A9585

== ENCOUNTER → 2020-02-20 | Outpatient (CLI) | payer OTHER, BC ==
[~2020-02-20] MED LIST changes: -GADOBUTROL 10 MMOL/10 ML PFS ONE; +SENN-190 PO; -SENN-88 PO
[2020-02-20 08:17] LABS: BASOPHILS # (AUTO) 0.04 x10^3/uL (0-0.1); BASOPHILS % (AUTO) 0 % (0-1); EOSINOPHILS # (AUTO) 0.21 x10^3/uL (0-0.4); EOSINOPHILS % (AUTO) 2 % (1-7); LYMPHOCYTES % (AUTO) 35 % (22-44); MD NO; MEAN CORPUSCULAR HEMOGLOBIN 28.7 pg (27.0-34.8); MEAN CORPUSCULAR VOLUME 86.9 fL (80-100); MEAN PLATELET VOLUME 8.7 fL (7.4-10.4); MONOCYTES # (AUTO) 0.41 x10^3/uL (0.2-0.8); MONOCYTES % (AUTO) 5 % (2-9); NEUTROPHILS # (AUTO) 5.19 x10^3/uL (1.8-6.8); NEUTROPHILS % (AUTO) 58 % (42-75); PLATELET COUNT 258 x10^3/uL (130-400); RED BLOOD COUNT 4.45 x10^6/uL (3.82-5.3); RED CELL DISTRIBUTION WIDTH 13.5 % (9.6-15.2)
[2020-02-20 08:29] LABS: ALANINE AMINOTRANSFERASE 40 U/L (12-78); ALBUMIN 3.9 g/dL (3.4-5.0); ANION GAP 6 mmol/L (5-15); CALCIUM 8.6 mg/dL (8.5-10.1); CHLORIDE 111 mmol/L (98-107)
[2020-02-20 08:40] LABS: ALKALINE PHOSPHATASE 82 U/L (45-117); BILIRUBIN,TOTAL 0.4 mg/dL (0.2-1.0); CHOL/HDL RATIO 2.7; CHOLESTEROL, TOTAL 123 mg/dL (140-239); CREATININE 0.83 mg/dL (0.55-1.02); HDL CHOL % 37 % (28-40); HDL CHOLESTEROL (DIRECT) 46 mg/dL (40-60); LDL CHOLESTEROL,CALCULATED 59 mg/dL (54-169); LDL/HDL RATIO 1.3 (0.5-3.0); TOTAL PROTEIN 7.7 g/dL (6.4-8.2); TRIGLYCERIDES 88 mg/dL (50-200); VLDL CHOLESTEROL 18 mg/dL (0-25)
== END | disposition home or self-care (01) ==
LOC: LAB 08:04
PROVIDERS: ATTEND Family Medicine
DX: Z00.01 Encounter for general adult medical examination with abnormal findings (principal); Z13.220 Encounter for screening for lipoid disorders; Z13.228 Encounter for screening for other metabolic disorders; E66.9 Obesity, unspecified
CPT/HCPCS: 36415; 80053; 80061; 83036; 84443; 85025

== ENCOUNTER → 2020-03-26 | Outpatient (CLI) | payer OTHER, BC ==
[2020-03-26 07:50] LABS: BASOPHILS # (AUTO) 0.03 x10^3/uL (0-0.1); BASOPHILS % (AUTO) 1 % (0-1); EOSINOPHILS # (AUTO) 0.05 x10^3/uL (0-0.4); EOSINOPHILS % (AUTO) 1 % (1-7); LYMPHOCYTES % (AUTO) 39 % (22-44); MD NO; MEAN CORPUSCULAR HEMOGLOBIN 28.5 pg (27.0-34.8); MEAN CORPUSCULAR HGB CONC 32.4 g/dL (32.4-35.8); MEAN PLATELET VOLUME 8.8 fL (7.4-10.4); MONOCYTES # (AUTO) 0.51 x10^3/uL (0.2-0.8); MONOCYTES % (AUTO) 8 % (2-9); NEUTROPHILS # (AUTO) 3.28 x10^3/uL (1.8-6.8); NEUTROPHILS % (AUTO) 52 % (42-75); PLATELET COUNT 204 x10^3/uL (130-400); RED BLOOD COUNT 4.91 x10^6/uL (3.82-5.3); RED CELL DISTRIBUTION WIDTH 13.6 % (9.6-15.2)
== END | disposition home or self-care (01) ==
LOC: LAB 07:28
PROVIDERS: ATTEND Obstetrics & Gynecology
DX: N92.0 Excessive and frequent menstruation with regular cycle (principal); N91.2 Amenorrhea, unspecified
CPT/HCPCS: 36415; 84702; 85025

== ENCOUNTER → 2020-05-08 | Outpatient (CLI) | payer OTHER, BC | END | disposition home or self-care (01) | LOC: CVU 06:58 | PROVIDERS: ATTEND Internal Medicine Cardiovascular Disease | DX: I87.2 Venous insufficiency (chronic) (peripheral) (principal); I70.213 Atherosclerosis of native arteries of extremities with intermittent claudication, bilateral legs; M79.662 Pain in left lower leg; M79.661 Pain in right lower leg; R60.9 Edema, unspecified | CPT/HCPCS: 93922; 93970 ==

== ENCOUNTER → 2020-06-18 | Outpatient (CLI) | payer OTHER, BC ==
[2020-06-18 08:48] LABS: BASOPHILS % (AUTO) 1 % (0-1); EOSINOPHILS % (AUTO) 1 % (1-7); LYMPHOCYTES % (AUTO) 31 % (22-44); MEAN CORPUSCULAR HEMOGLOBIN 28.8 pg (27.0-34.8); MEAN CORPUSCULAR HGB CONC 33.2 g/dL (32.4-35.8); MEAN PLATELET VOLUME 8.7 fL (7.4-10.4); MONOCYTES % (AUTO) 5 % (2-9); NEUTROPHILS % (AUTO) 63 % (42-75); PLATELET COUNT 251 x10^3/uL (130-400); RED BLOOD COUNT 5.08 x10^6/uL (3.82-5.3); RED CELL DISTRIBUTION WIDTH 12.9 % (9.6-15.2)
[2020-06-18 08:53] LABS: MD NO
[2020-06-18 08:58] LABS: ALBUMIN 4.2 g/dL (3.4-5.0); CHLORIDE 108 mmol/L (98-107)
[2020-06-18 09:03] LABS: MICROSCOPIC NOT IND
[2020-06-18 09:23] LABS: ALANINE AMINOTRANSFERASE 23 U/L (12-78); ALKALINE PHOSPHATASE 98 U/L (45-117); ANION GAP 7 mmol/L (5-15); BILIRUBIN,TOTAL 0.5 mg/dL (0.2-1.0); CHOL/HDL RATIO 2.6; CHOLESTEROL, TOTAL 161 mg/dL (140-239); CREATININE 0.82 mg/dL (0.55-1.02); FREE T4 (FREE THYROXINE) 0.94 ng/dL (0.76-1.46); HDL CHOL % 39 % (28-40); HDL CHOLESTEROL (DIRECT) 63 mg/dL (40-60); LDL CHOLESTEROL,CALCULATED 79 mg/dL (54-169); LDL/HDL RATIO 1.3 (0.5-3.0); TOTAL PROTEIN 8.6 g/dL (6.4-8.2); TRIGLYCERIDES 95 mg/dL (50-200); VLDL CHOLESTEROL 19 mg/dL (0-25)
== END | disposition home or self-care (01) ==
LOC: LAB 08:18
PROVIDERS: ATTEND Family Medicine
DX: Z13.220 Encounter for screening for lipoid disorders (principal); Z13.228 Encounter for screening for other metabolic disorders; Z13.29 Encounter for screening for other suspected endocrine disorder; G50.0 Trigeminal neuralgia; E66.9 Obesity, unspecified; R53.81 Other malaise
CPT/HCPCS: 36415; 80053; 80061; 81003; 82306; 82607; 83036; 83520; 84439; 84443; 84481; 85025; 86376

== ENCOUNTER 2020-09-18 07:20 | Outpatient (CLI) | payer OTHER, BC ==
[~2020-09-18 07:20] MED LIST changes: -OXYC-302 PO; +OXYC1TAB14 PO
== END 2020-09-18 23:59 | disposition home or self-care (01) ==
LOC: LAB 07:20
PROVIDERS: ATTEND Internal Medicine Endocrinology, Diabetes & Metabolism
DX: E55.9 Vitamin D deficiency, unspecified (principal); L68.0 Hirsutism; R63.5 Abnormal weight gain
CPT/HCPCS: 36415; 82306; 82310; 82530; 82627; 84403

== ENCOUNTER → 2021-04-09 | Outpatient (CLI) | payer BC, OTHER | END | disposition home or self-care (01) | LOC: CFH 12:11 | PROVIDERS: ATTEND Obstetrics & Gynecology | DX: N63.22 Unspecified lump in the left breast, upper inner quadrant (principal); N63.21 Unspecified lump in the left breast, upper outer quadrant | CPT/HCPCS: 76642; 77062; 77066; G0279 ==

== ENCOUNTER 2021-04-12 08:08 | Outpatient (CLI) | payer OTHER ==
[~2021-04-12 08:08] MED LIST changes: +OXYC1TAB12 PO; -OXYC1TAB14 PO
[2021-04-12] MEDS ORDERED: SODIUM BICARBONATE 4.2%, 5ML ONE (08:30)
[2021-04-12] MEDS ORDERED: LIDOCAINE 1%-EPI 1:100K, 20ML ONE (08:30)
[2021-04-12] MEDS ORDERED: LIDOCAINE 1%, 20ML ONE (08:30)
[2021-04-29] MEDS ORDERED: MULT-449 PO (09:35)
[2021-04-29] MEDS ORDERED: MULT-672 PO (09:35)
[2021-04-29] MEDS ORDERED: RIME75TA PO (09:35)
[2021-04-29] MEDS ORDERED: CHOL10003 PO (09:35)
[2021-05-06] MEDS ORDERED: ONDA4TAB7 PO (18:08)
[2021-05-06] MEDS ORDERED: HYDR-2214 PO (18:08)
== END 2021-04-12 23:59 | disposition home or self-care (01) ==
LOC: CFH 08:08
PROVIDERS: ATTEND Obstetrics & Gynecology
DX: N63.21 Unspecified lump in the left breast, upper outer quadrant (principal); R59.0 Localized enlarged lymph nodes; C50.412 Malignant neoplasm of upper-outer quadrant of left female breast; C77.3 Secondary and unspecified malignant neoplasm of axilla and upper limb lymph nodes; Z17.1 Estrogen receptor negative status [ER-]
CPT/HCPCS: 19083; 38505; 76942; 77065; 88305; J3490

== ENCOUNTER → 2021-04-16 | Outpatient (CLI) | payer OTHER ==
[~2021-04-16] MED LIST changes: -OXYC1TAB12 PO; +OXYC1TAB14 PO
== END | disposition home or self-care (01) ==
LOC: LAB 15:22
PROVIDERS: ATTEND Internal Medicine Endocrinology, Diabetes & Metabolism
DX: E06.3 Autoimmune thyroiditis (principal)
CPT/HCPCS: 36415; 84443

== ENCOUNTER 2021-04-27 12:54 | Outpatient (CLI) | payer OTHER ==
[~2021-04-27 12:54] MED LIST changes: +OXYC1TAB12 PO; -OXYC1TAB14 PO
[2021-04-27] MEDS ORDERED: GADOTERATE 10 MMOL/20 ML VIAL ONE (13:44)
[2021-04-29] MEDS ORDERED: MULT-672 PO (09:35)
[2021-04-29] MEDS ORDERED: CHOL10003 PO (09:35)
[2021-04-29] MEDS ORDERED: MULT-449 PO (09:35)
[2021-04-29] MEDS ORDERED: RIME75TA PO (09:35)
[2021-05-06] MEDS ORDERED: ONDA4TAB7 PO (18:08)
[2021-05-06] MEDS ORDERED: HYDR-2214 PO (18:08)
== END 2021-04-27 23:59 | disposition home or self-care (01) ==
LOC: CFH 12:54
PROVIDERS: ATTEND Surgery
DX: C50.412 Malignant neoplasm of upper-outer quadrant of left female breast (principal); N63.21 Unspecified lump in the left breast, upper outer quadrant; R23.4 Changes in skin texture; R59.0 Localized enlarged lymph nodes
CPT/HCPCS: 77049; A9575; C8908

== ENCOUNTER 2021-05-05 10:50 | Outpatient (CLI) | payer OTHER, BC | END 2021-05-05 23:59 | disposition home or self-care (01) | LOC: CVU 10:50 | PROVIDERS: ATTEND Internal Medicine Hematology & Oncology | DX: C50.812 Malignant neoplasm of overlapping sites of left female breast (principal) ==

== ENCOUNTER 2021-05-05 11:53 | Emergency (ER) | payer OTHER, BC ==
[~2021-05-05] VITALS: Ht 170.2 cm; Wt 77.0 kg
[~2021-05-05 11:53] MED LIST changes: +CHOL10003 PO; +MULT-449 PO; +MULT-672 PO; +RIME75TA PO
--- NOTE | 2021-05-05 12:05 | NUR ---
EKG DONE IN TRIAGE.
[2021-05-05 13:16] LABS: ALBUMIN 3.6 g/dL (3.4-5.0); ANION GAP 4 mmol/L (5-15); BASOPHILS % (AUTO) 1 % (0-1); CALCIUM 8.6 mg/dL (8.5-10.1); CHLORIDE 104 mmol/L (98-107); EOSINOPHILS % (AUTO) 1 % (1-7); LYMPHOCYTES % (AUTO) 29 % (22-44); MEAN CORPUSCULAR HEMOGLOBIN 29.3 pg (27.0-34.8); MEAN CORPUSCULAR HGB CONC 33.9 g/dL (32.4-35.8); MEAN PLATELET VOLUME 9.2 fL (7.4-10.4); MONOCYTES % (AUTO) 5 % (2-9); NEUTROPHILS % (AUTO) 64 % (42-75); PLATELET COUNT 222 x10^3/uL (130-400); RED BLOOD COUNT 4.56 x10^6/uL (3.82-5.3); RED CELL DISTRIBUTION WIDTH 12.9 % (9.6-15.2)
[2021-05-05 13:23] LABS: ALANINE AMINOTRANSFERASE 64 U/L (12-78); ALKALINE PHOSPHATASE 105 U/L (45-117); BILIRUBIN,TOTAL 0.6 mg/dL (0.2-1.0); CREATININE 0.62 mg/dL (0.55-1.02); TOTAL PROTEIN 7.8 g/dL (6.4-8.2); TROPONIN I 0.062 ng/mL (0.000-0.045)
--- NOTE | 2021-05-05 14:37 | NUR ---
STEM CUTTER: TO ROOM FROM LOBBY
--- NOTE | 2021-05-05 14:45 | NUR ---
pt w trop .062, echo showed L pleural effusion. renita otero in room for eval. as
[2021-05-05] MEDS ORDERED: ASPIRIN 81 MG TABLET CHEW ONE ×2 (14:46→15:28)
[2021-05-05] MEDS ORDERED: ASPIRIN 81 MG TABLET CHEW PO ONE (15:00)
--- NOTE | 2021-05-05 15:00 | NUR ---
report from rosalia gillette
[2021-05-05] MEDS ORDERED: MORPHINE SULFATE 4 MG/ML, 1ML ONE ×3 (15:15→17:11)
[2021-05-05] MEDS ORDERED: ONDANSETRON 2MG/ML, 2ML ONE (15:15)
[2021-05-05] MEDS: MORPHINE SULFATE 4 MG/ML, 1ML IVPush PRN ×2 (15:27→16:36)
[2021-05-05] MEDS ORDERED: ONDANSETRON 2MG/ML, 2ML IVPush ONE (15:30)
--- NOTE | 2021-05-05 15:34 | NUR ---
d-dimer sent medicated per emar with asa/morhine/zofran
--- NOTE | 2021-05-05 15:53 | NUR ---
lab at bedside for troponin draw with reassessment pain/nausea to 10/07, vss poc updated with erp then passed on to patient
[2021-05-05 16:13] LABS: TROPONIN I 0.055 ng/mL (0.000-0.045)
--- NOTE | 2021-05-05 16:28 | NUR ---
labs back, recheck. as
[2021-05-05] MEDS ORDERED: SODIUM CHLORIDE 0.9%, 500ML IVBOLUS ONE (17:00)
--- NOTE | 2021-05-05 17:09 | NUR ---
TO CT SCAN
[2021-05-05] MEDS ORDERED: MORPHINE SULFATE 4 MG/ML, 1ML IVPush ONE (18:00)
[2021-05-05 18:45] VITALS: BP 157/92
[2021-05-06] MEDS ORDERED: HYDR-2214 PO (18:08)
[2021-05-06] MEDS ORDERED: ONDA4TAB7 PO (18:08)
== END 2021-05-05 18:48 | disposition home or self-care (01) ==
LOC: ED 18:30
DX: R07.89 Other chest pain (principal); C80.1 Malignant (primary) neoplasm, unspecified
CPT/HCPCS: 36415; 71045; 71250; 80053; 83880; 84484; 84703; 85025; 85379; 93005; 96361; 96374; 96375; 96376; 99285; J2270; J2405; J7040

== ENCOUNTER 2021-05-06 08:00 | Day surgery (SDC) | payer OTHER, BC ==
[~2021-05-06] VITALS: Ht 165.1 cm; Wt 82.7 kg
== END 2021-05-06 19:22 | disposition home or self-care (01) ==
LOC: OUT 08:00
PROVIDERS: ATTEND Surgery
DX: C50.412 Malignant neoplasm of upper-outer quadrant of left female breast (principal)
CPT/HCPCS: 36561; 71045; 76937; 77001; 81025; C1769; C1788; J0171; J0330; J0690; J1100; J1644; J2250; J2405; J2704; J2710; J3010

== ENCOUNTER 2021-05-09 00:37 | Inpatient (IN) | payer OTHER, BC ==
[~2021-05-09] VITALS: Ht 165.1 cm; Wt 72.6 kg
[~2021-05-09 00:37] MED LIST changes: +HYDR-2214 PO; +ONDA4TAB7 PO
--- NOTE | 2021-05-09 00:50 | NUR ---
INITIAL PT CONTACT. PT PRESENTS TO ED C/O PAIN ASSOCIATED WITH RECENT PORT PLACEMENT, PT STATES PORT WAS PLACED 3 DAYS AGO FOR CHEMO STARTING SOON FOR RECENT DX OF BREAST CANCER. PT STATES SHE MOVED IN BED AND SUDDENLY EXPERIENCED SEVERE PAIN TO THE RIGHT SHOULDER AND NEAR WHERE THE PORT IS PLACED, "I FEEL LIKE THERE IS SOMETHING POKING ME." PT APPEARS IN A SIGNIFICANT DISCOMFORT WITH SHALLOW BREATHING AND SIGNIFICANT PAIN. PT ALSO REPORTS EXPERIENCING A BAD TOOTH ACHE ON THE LEFT SIDE OF HER MOUTH PRIOR TO PORT PLACEMENT AND NOW BELIEVES SHE HAS A TOOTH ABCESS, "IM AFRAID IT WILL MOVE OVER TO WHERE THE PORT IS." PT UPRIGHT ON GURNEY, PLACED ON CONTINUOUS MONITORING. ERP AT BEDSIDE.
[2021-05-09] MEDS ORDERED: MORPHINE SULFATE 4 MG/ML, 1ML ONE ×3 (01:26→11:37)
[2021-05-09] MEDS ORDERED: ONDANSETRON 2MG/ML, 2ML ONE ×2 (01:26→03:39)
[2021-05-09] MEDS ORDERED: ONDANSETRON 2MG/ML, 2ML IVPush ONE (01:30)
[2021-05-09] MEDS ORDERED: SODIUM CHLORIDE FLUSH 10ML SYR IVF ONE (01:30)
[2021-05-09] MEDS ORDERED: SODIUM CHLORIDE 0.9% 1,000ML IVBOLUS ONE (01:30)
[2021-05-09] MEDS ORDERED: LIDOCAINE 1%, 10ML INFIL ONE (01:30)
[2021-05-09] MEDS ORDERED: LIDOCAINE-MPF 1%, 5ML ONE ×3 (01:37→02:35)
[2021-05-09 01:59] LABS: BASOPHILS % (AUTO) 1 % (0-1); EOSINOPHILS % (AUTO) 2 % (1-7); LYMPHOCYTES % (AUTO) 26 % (22-44); MEAN CORPUSCULAR HEMOGLOBIN 29.3 pg (27.0-34.8); MEAN CORPUSCULAR HGB CONC 33.8 g/dL (32.4-35.8); MEAN PLATELET VOLUME 8.5 fL (7.4-10.4); MONOCYTES % (AUTO) 7 % (2-9); NEUTROPHILS % (AUTO) 65 % (42-75); PLATELET COUNT 234 x10^3/uL (130-400); RED BLOOD COUNT 4.49 x10^6/uL (3.82-5.3); RED CELL DISTRIBUTION WIDTH 13.4 % (9.6-15.2)
[2021-05-09] MEDS ORDERED: LIDOCAINE-MPF 1%, 5ML INFIL ONE (02:00)
--- NOTE | 2021-05-09 02:00 | NUR ---
PT PREPARED FOR CHEST TUBE PLACEMENT AND PROCEDURAL SEDATION. SUCTION AVAILABLE AT BEDSIDE, CODE CART IN REACH AND OTHER EMERGENCY EQUIPMENT AVAILABLE. ENDTIDAL CO2 MONITORING AND OTHER CONTINUOUS MONITORING IN PLACE. SIGNED CONSENT AT BEDSIDE. AWAITING ERP.
[2021-05-09 02:08] LABS: ALANINE AMINOTRANSFERASE 124 U/L (12-78); ALBUMIN 3.6 g/dL (3.4-5.0); ANION GAP 5 mmol/L (5-15); CALCIUM 8.7 mg/dL (8.5-10.1); CHLORIDE 103 mmol/L (98-107)
[2021-05-09] MEDS ORDERED: PROPOFOL 10 MG/ML, 20ML ONE (02:08)
[2021-05-09 02:12] LABS: ALKALINE PHOSPHATASE 122 U/L (45-117); BILIRUBIN,TOTAL 0.3 mg/dL (0.2-1.0); CREATININE 0.68 mg/dL (0.55-1.02); TOTAL PROTEIN 7.7 g/dL (6.4-8.2)
[2021-05-09 02:28] LABS: TROPONIN I 0.419 ng/mL (0.000-0.045)
[2021-05-09] MEDS ORDERED: PROPOFOL 10 MG/ML, 20ML IVPush ONE (02:30)
[2021-05-09] MEDS ORDERED: FENTANYL PF 100 MCG/2ML ONE (03:02)
--- NOTE | 2021-05-09 03:15 | NUR ---
PROCEDURAL SEDATION COMPLETE AND CHEST TUBE PLACED BY ERP. PT TOLERATED WELL. PT O2 SAT REMAINS LOW 80'S WHILE ON 15L O2 VIA NRB MASK. ERP AWARE AND AT BEDSIDE. CALL PLACED TO RT, WILL PLACE PT ON HIGH FLOW OR OPTIFLOW SEE PAPER SEDATION CHARTING FOR FURTHER INFO.
[2021-05-09] MEDS ORDERED: KETAMINE 10 MG/ML, 20ML ONE (03:25)
[2021-05-09] MEDS ORDERED: LORazepam 2 MG/ML, 1ML ONE (03:40)
[2021-05-09] MEDS ORDERED: PROMETHAZINE 25 MG/ML, 1ML ONE ×2 (03:48→07:30)
[2021-05-09] MEDS ORDERED: KETAMINE 10 MG/ML, 20ML IV ONE (04:00)
[2021-05-09] MEDS ORDERED: PROMETHAZINE 25 MG/ML, 1ML IM PRN (04:00)
[2021-05-09] MEDS: ACETAMINOPHEN 325 MG TABLET PO SCH ×3 (04:00→13:05)
[2021-05-09] MEDS ORDERED: LORazepam 2 MG/ML, 1ML IVPush PRN (04:00)
[2021-05-09] MEDS: LACTATED RINGERS 1,000 ML IV SCH ×2 (04:00→17:33)
[2021-05-09] MEDS ORDERED: MELATONIN 5 MG TABLET PO PRN (04:00)
[2021-05-09] MEDS ORDERED: FENTANYL PF 100 MCG/2ML IV ONE (04:00)
[2021-05-09] MEDS ORDERED: LABETALOL 5MG/ML, 20ML IVPush PRN (04:00)
[2021-05-09] MEDS ORDERED: KETAMINE 100 MG in SODIUM CHLORIDE 0.9% 99 ML IV PRN (04:00)
[2021-05-09] MEDS ORDERED: ONDANSETRON 2MG/ML, 2ML IVPush PRN (04:00)
[2021-05-09] MEDS ORDERED: POLYETHYLENE GLYCOL 17 GM PACKET PO PRN (04:00)
--- NOTE | 2021-05-09 04:00 | NUR ---
PT PLACED ON OPTIFLOW BY RT PER ERP ORDER, IN ORDER TO MAINTAIN O2 LEVELS ABOVE 90%. 45L AND 100%. PT TOLERATING WELL. HOSPITALIST AT BEDSIDE
[2021-05-09] MEDS ORDERED: KETOROLAC 30 MG/1 ML ONE ×3 (04:46→11:37)
[2021-05-09] MEDS: KETOROLAC 30 MG/1 ML IVPush SCH ×5 (04:49→20:47)
[2021-05-09] MEDS ORDERED: KETAMINE IV ONE (05:00)
[2021-05-09] MEDS ORDERED: KETAMINE 100 MG in SODIUM CHLORIDE 0.9% 99 ML IV ONE (05:00)
[2021-05-09] MEDS ORDERED: SODIUM CHLORIDE 0.9% IV ONE (05:00)
--- NOTE | 2021-05-09 05:00 | NUR ---
DISCUSSION WITH HOSPITALIST REGARD KETAMINE DRIP. TITRATION TO BEGIN AT 0.1MCG/KG/MIN AND BE TITRATED UP OR DOWN BY 0.05MCG/KG/MIN TO MAINTAIN PAIN LEVEL BELOW 6. NO INDICATION TO BEGIN DRIP AT THIS TIME.
--- NOTE | 2021-05-09 05:40 | NUR ---
FARM MANAGEMENT SUPERVISOR RN: VITAL SIGNS FILLED FOR PATIENT.
--- NOTE | 2021-05-09 06:03 | NUR ---
PT SITTING UPRIGHT ON GURNEY, STATES SHE FEELS MUST BETTER. RESTING CALMLY. CONTINUOUS MONITORING IN PLACE, SPOUSE REMAINS AT BEDSIDE. NO CURRENT INDICATION TO START KETAMINE DRIP. PAIN WELL CONTROLLED.
--- NOTE | 2021-05-09 06:54 | NUR ---
RECEIVED BEDSIDE REPORT FROM BRIANA ALVAREZ. ASSUMING CARE AT THIS TIME. PT CONNECTED TO ALL MONITORING. CALL LIGHT IN REACH. PT SITTING UPRIGHT, JUAN J. SPOUSE AT BEDSIDE. Addendum: 05/09/21 at 0741 by [email or web address] CHEST TUBE IN PLACE.
--- NOTE | 2021-05-09 06:55 | NUR ---
BEDSIDE REPORT GIVEN TO MAGNUS ALVAREZ
[2021-05-09 07:01] LABS: BASOPHILS % (AUTO) 1 % (0-1); EOSINOPHILS % (AUTO) 1 % (1-7); LYMPHOCYTES % (AUTO) 21 % (22-44); MEAN CORPUSCULAR HEMOGLOBIN 29.3 pg (27.0-34.8); MEAN CORPUSCULAR HGB CONC 33.6 g/dL (32.4-35.8); MEAN PLATELET VOLUME 8.3 fL (7.4-10.4); MONOCYTES % (AUTO) 6 % (2-9); NEUTROPHILS % (AUTO) 71 % (42-75); PLATELET COUNT 213 x10^3/uL (130-400); RED BLOOD COUNT 4.33 x10^6/uL (3.82-5.3); RED CELL DISTRIBUTION WIDTH 13.3 % (9.6-15.2)
--- NOTE | 2021-05-09 07:08 | NUR ---
DISCUSSION WITH HOSPITALIST DR. OSORIO. D/C AND RETURN KETAMINE DRIP TO PHARMACY. NO INDICATION FOR USE. DAY SHIFT RN MAGNUS TO RETURN DRIP TO PHARMACY.
[2021-05-09 07:12] LABS: ANION GAP 8 mmol/L (5-15); CALCIUM 7.8 mg/dL (8.5-10.1); CHLORIDE 108 mmol/L (98-107); CREATININE 0.54 mg/dL (0.55-1.02)
[2021-05-09 07:26] LABS: TROPONIN I 0.405 ng/mL (0.000-0.045)
[2021-05-09] MEDS ORDERED: FAMOTIDINE 20 MG/2 ML ONE (07:30)
[2021-05-09] MEDS: FAMOTIDINE 20 MG/2 ML IVPush SCH ×2 (07:34→20:47)
--- NOTE | 2021-05-09 07:42 | NUR ---
PT HAS BEEN INTERMITTENLY COUGHING AND MAKING HER NAUSEATED. PHENERGAN PRN ADMIN PER OCT. AM MEDS ADMIN PER OCT. PT AWARE TO NOTIFY THIS RN IF WANT ANYTHING TO EAT. ICE CHIPS PROVIDED. RT DECREASED PT TO HIGH FLOW NC ON 8L OXYGEN. PT TOLERATING WELL. CHEST TUBE IN PLACE.
[2021-05-09] MEDS: MORPHINE SULFATE 4 MG/ML, 1ML IVPush PRN ×2 (09:08→11:39)
[2021-05-09] MEDS: AMPICILLIN/SULBACTAM 3 GM in SODIUM CHLORIDE 0.9% 100 ML IV SCH ×3 (09:08→20:47)
--- NOTE | 2021-05-09 09:16 | NUR ---
PT C/O 04/[address] CRIER PER OCT. SPOUSE AT BEDSIDE. PT CONNECTED TO ALL MONITORING.
--- NOTE | 2021-05-09 09:43 | NUR ---
PT SLEEPING, RESP EVEN AND UNLABORED. SPOUSE AT BEDSIDE.
--- NOTE | 2021-05-09 11:04 | NUR ---
PT AWAKE AND NOW REQUESTING HOSPITAL BED THAT WAS PREVIOUSLY REFUSED. HOSPITAL BED REQUESTED FROM HOUSEKEEPING. PT STATES SHE FEELS MORE RESTED AFTER SLEEPING. PT CONNECTED TO MONITORING. CHEST TUBE IN PLACE.
--- NOTE | 2021-05-09 11:57 | NUR ---
TASK RN: PT STAND AND TRANSFER TO BED SIDE COMMODE. VOIDED W/O DIFFICULTY. HOSPITAL BED TO ROOM AND PT RTD TO HOSPITAL BED STAND AND TRANSFER, RN STANDBY ASSIST. ALL MONITORS PLACED AND CALL LIGHT W/I REACH. PRIMARY RN UPDATED.
[2021-05-09 12:44] LABS: TROPONIN I 0.344 ng/mL (0.000-0.045)
--- NOTE | 2021-05-09 13:53 | NUR ---
REPORT GIVEN TO ZIA ALVAREZ. PT RTG TO ROOM [id number]
[2021-05-09 15:42] VITALS: BP 135/91
[2021-05-09] MEDS: ACETAMINOPHEN 500 MG TABLET PO SCH ×3 (16:32→20:47)
[2021-05-09 20:43] VITALS: BP 137/86
[2021-05-09 21:25] LABS: MICROSCOPIC INDICATED
[2021-05-09] MEDS: HYDROmorphone 2 MG/ML, 1ML IV PRN (22:59)
[2021-05-10] MEDS: KETOROLAC 30 MG/1 ML IVPush SCH ×6 (01:15→22:07)
[2021-05-10 01:16] VITALS: BP 116/78
[2021-05-10] MEDS: AMPICILLIN/SULBACTAM 3 GM in SODIUM CHLORIDE 0.9% 100 ML IV SCH ×4 (02:51→20:18)
[2021-05-10] MEDS: HYDROmorphone 2 MG/ML, 1ML IV PRN ×6 (02:51→20:18)
[2021-05-10] MEDS: ACETAMINOPHEN 500 MG TABLET PO SCH ×6 (02:51→22:02)
[2021-05-10 05:19] LABS: BASOPHILS % (AUTO) 1 % (0-1); EOSINOPHILS % (AUTO) 3 % (1-7); LYMPHOCYTES % (AUTO) 25 % (22-44); MEAN CORPUSCULAR HEMOGLOBIN 29.7 pg (27.0-34.8); MEAN CORPUSCULAR HGB CONC 33.9 g/dL (32.4-35.8); MEAN PLATELET VOLUME 8.6 fL (7.4-10.4); MONOCYTES % (AUTO) 7 % (2-9); NEUTROPHILS % (AUTO) 64 % (42-75); PLATELET COUNT 205 x10^3/uL (130-400); RED BLOOD COUNT 3.94 x10^6/uL (3.82-5.3); RED CELL DISTRIBUTION WIDTH 13.3 % (9.6-15.2)
[2021-05-10 05:26] LABS: ANION GAP 4 mmol/L (5-15); CALCIUM 7.8 mg/dL (8.5-10.1); CHLORIDE 106 mmol/L (98-107)
[2021-05-10 05:29] LABS: CREATININE 0.52 mg/dL (0.55-1.02)
[2021-05-10] MEDS: FAMOTIDINE 20 MG/2 ML IVPush SCH (08:52)
[2021-05-10 08:59] VITALS: BP 145/91
[2021-05-10 13:59] VITALS: BP 130/85
[2021-05-10] MEDS: LACTATED RINGERS 1,000 ML IV SCH (17:09)
[2021-05-10] MEDS: FAMOTIDINE 20 MG TABLET PO SCH (22:02)
[2021-05-11] MEDS: HYDROmorphone 2 MG/ML, 1ML IV PRN ×8 (00:39→23:27)
[2021-05-11 00:41] VITALS: BP 155/94
[2021-05-11] MEDS: KETOROLAC 30 MG/1 ML IVPush SCH ×6 (01:52→21:23)
[2021-05-11] MEDS: AMPICILLIN/SULBACTAM 3 GM in SODIUM CHLORIDE 0.9% 100 ML IV SCH (02:56)
[2021-05-11] MEDS: ACETAMINOPHEN 500 MG TABLET PO SCH ×6 (02:56→21:23)
[2021-05-11] MEDS: AMOXICILLIN/CLAV 500-125MG TABLET PO SCH ×3 (07:52→21:24)
[2021-05-11] MEDS: FAMOTIDINE 20 MG TABLET PO SCH ×2 (07:52→21:23)
[2021-05-11 08:47] VITALS: BP 119/78
[2021-05-11 08:49] LABS: BASOPHILS % (AUTO) 1 % (0-1); EOSINOPHILS % (AUTO) 3 % (1-7); LYMPHOCYTES % (AUTO) 30 % (22-44); MEAN CORPUSCULAR HEMOGLOBIN 29.7 pg (27.0-34.8); MEAN CORPUSCULAR HGB CONC 34.2 g/dL (32.4-35.8); MEAN PLATELET VOLUME 8.2 fL (7.4-10.4); MONOCYTES % (AUTO) 7 % (2-9); NEUTROPHILS % (AUTO) 59 % (42-75); PLATELET COUNT 219 x10^3/uL (130-400); RED BLOOD COUNT 3.98 x10^6/uL (3.82-5.3); RED CELL DISTRIBUTION WIDTH 13.3 % (9.6-15.2)
[2021-05-11 13:58] VITALS: BP 145/87
[2021-05-11 20:50] VITALS: BP 131/81
[2021-05-12 01:20] VITALS: BP 147/91
[2021-05-12] MEDS: ACETAMINOPHEN 500 MG TABLET PO SCH ×6 (02:14→20:29)
[2021-05-12] MEDS: KETOROLAC 30 MG/1 ML IVPush SCH (02:14)
[2021-05-12] MEDS: HYDROmorphone 2 MG/ML, 1ML IV PRN (06:23)
[2021-05-12] MEDS: AMOXICILLIN/CLAV 500-125MG TABLET PO SCH ×3 (06:23→23:17)
[2021-05-12 07:50] VITALS: BP 128/85
[2021-05-12] MEDS ORDERED: HYDROcodone/APAP 5/325 TABLET PO PRN (08:30)
[2021-05-12] MEDS: FAMOTIDINE 20 MG TABLET PO SCH ×2 (08:57→20:29)
[2021-05-12] MEDS: LIDODERM 5% PATCH TD SCH (09:04)
[2021-05-12] MEDS: HYDROcodone/APAP 10/325 MG TABLET PO PRN ×3 (13:29→23:29)
[2021-05-12 13:48] LABS: BASOPHILS % (AUTO) 1 % (0-1); EOSINOPHILS % (AUTO) 3 % (1-7); LYMPHOCYTES % (AUTO) 23 % (22-44); MEAN CORPUSCULAR HEMOGLOBIN 28.6 pg (27.0-34.8); MEAN CORPUSCULAR HGB CONC 33.2 g/dL (32.4-35.8); MONOCYTES % (AUTO) 6 % (2-9); NEUTROPHILS % (AUTO) 67 % (42-75); PLATELET COUNT 281 x10^3/uL (130-400); RED BLOOD COUNT 4.79 x10^6/uL (3.82-5.3); RED CELL DISTRIBUTION WIDTH 13.4 % (9.6-15.2)
[2021-05-12] MEDS ORDERED: BISACODYL 10 MG SUPP PR PRN (14:30)
[2021-05-12 15:01] VITALS: BP 145/88
[2021-05-12] MEDS ORDERED: LIDOCAINE 1%, 20ML ONE (15:29)
[2021-05-12] MEDS ORDERED: FENTANYL PF 100 MCG/2ML ONE (15:41)
[2021-05-12] MEDS ORDERED: NALOXONE 1 MG/ML, 2ML ONE (15:41)
[2021-05-12] MEDS ORDERED: MORPHINE SULFATE 4 MG/ML, 1ML IVPush PRN (19:00)
[2021-05-12] MEDS ORDERED: LORazepam 1MG TABLET PO PRN (19:00)
[2021-05-12] MEDS: SENNA/DOCUSATE TABLET PO SCH (20:29)
[2021-05-12] MEDS: LIDODERM REMOVE PATCH NOTE XX SCH (20:29)
[2021-05-12] MEDS: MORPHINE SULFATE 4 MG/ML, 1ML IVPush PRN (22:02)
[2021-05-12 23:30] VITALS: BP 144/94
[2021-05-13] MEDS: ACETAMINOPHEN 500 MG TABLET PO SCH ×2 (01:31→06:11)
[2021-05-13] MEDS: MORPHINE SULFATE 4 MG/ML, 1ML IVPush PRN ×7 (01:33→22:42)
[2021-05-13 01:42] VITALS: BP 155/96
[2021-05-13] MEDS: HYDROcodone/APAP 10/325 MG TABLET PO PRN (03:59)
[2021-05-13] MEDS: AMOXICILLIN/CLAV 500-125MG TABLET PO SCH ×3 (06:11→22:41)
[2021-05-13] MEDS: LIDODERM 5% PATCH TD SCH (08:19)
[2021-05-13] MEDS: FAMOTIDINE 20 MG TABLET PO SCH ×2 (08:20→21:24)
[2021-05-13] MEDS: SENNA/DOCUSATE TABLET PO SCH ×2 (08:21→21:24)
[2021-05-13 08:31] VITALS: BP 142/94
[2021-05-13] MEDS ORDERED: ACETAMINOPHEN 500 MG TABLET PO SCH (12:21)
[2021-05-13 12:52] VITALS: BP 146/94
[2021-05-13] MEDS: OXYcodone/APAP 10/325MG TABLET PO SCH ×2 (16:26→21:23)
[2021-05-13] MEDS: LIDODERM REMOVE PATCH NOTE XX SCH (20:30)
[2021-05-13 21:29] VITALS: BP 141/98
[2021-05-14 01:29] VITALS: BP 123/86
[2021-05-14] MEDS: MORPHINE SULFATE 4 MG/ML, 1ML IVPush PRN ×7 (01:45→22:46)
[2021-05-14] MEDS: OXYcodone/APAP 10/325MG TABLET PO SCH ×4 (04:00→22:45)
[2021-05-14] MEDS: AMOXICILLIN/CLAV 500-125MG TABLET PO SCH ×3 (06:18→22:45)
[2021-05-14 07:36] VITALS: BP 135/88
[2021-05-14] MEDS: LIDODERM 5% PATCH TD SCH (08:30)
[2021-05-14] MEDS: FAMOTIDINE 20 MG TABLET PO SCH ×2 (10:10→21:12)
[2021-05-14] MEDS: SENNA/DOCUSATE TABLET PO SCH ×2 (10:10→21:12)
[2021-05-14 12:55] VITALS: BP_SYST 129; BP_SYST 138; BP_DIAS 85; BP_DIAS 92
[2021-05-14 20:23] VITALS: BP 122/77
[2021-05-14] MEDS: LIDODERM REMOVE PATCH NOTE XX SCH (20:30)
[2021-05-15 00:36] VITALS: BP 135/83
[2021-05-15] MEDS: MORPHINE SULFATE 4 MG/ML, 1ML IVPush PRN ×4 (03:23→17:06)
[2021-05-15] MEDS: AMOXICILLIN/CLAV 500-125MG TABLET PO SCH ×2 (06:41→14:33)
[2021-05-15 06:51] LABS: ANION GAP 6 mmol/L (5-15); CALCIUM 8.9 mg/dL (8.5-10.1); CHLORIDE 105 mmol/L (98-107)
[2021-05-15 06:53] LABS: BASOPHILS % (AUTO) 1 % (0-1); EOSINOPHILS % (AUTO) 3 % (1-7); LYMPHOCYTES % (AUTO) 25 % (22-44); MEAN CORPUSCULAR HEMOGLOBIN 29.6 pg (27.0-34.8); MEAN CORPUSCULAR HGB CONC 33.4 g/dL (32.4-35.8); MEAN PLATELET VOLUME 8.3 fL (7.4-10.4); MONOCYTES % (AUTO) 9 % (2-9); NEUTROPHILS % (AUTO) 62 % (42-75); PLATELET COUNT 200 x10^3/uL (130-400); RED BLOOD COUNT 4.93 x10^6/uL (3.82-5.3); RED CELL DISTRIBUTION WIDTH 13.6 % (9.6-15.2)
[2021-05-15 07:48] VITALS: BP 125/89
[2021-05-15] MEDS: LIDODERM 5% PATCH TD SCH (08:30)
[2021-05-15] MEDS ORDERED: OXYcodone/APAP 10/325MG TABLET PO PRN (08:30)
[2021-05-15] MEDS ORDERED: HYDROmorphone 2 MG/ML, 1ML IVPush PRN (09:00)
[2021-05-15] MEDS ORDERED: HYDROmorphone 1 MG/ML, 1ML INJ IM ONE (09:00)
[2021-05-15] MEDS ORDERED: HYDROmorphone 2 MG/ML, 1ML ONE (09:01)
[2021-05-15] MEDS: SENNA/DOCUSATE TABLET PO SCH (10:59)
[2021-05-15] MEDS: FAMOTIDINE 20 MG TABLET PO SCH (10:59)
[2021-05-15 14:54] VITALS: BP 145/56
== END 2021-05-15 18:49 | disposition home or self-care (01) | DRG 189 ==
LOC: ED 00:50 → EDIP 03:38 → 4EST 15:32 → 4WST 05-13 00:25
PROVIDERS: ADMIT Internal Medicine; ATTEND Internal Medicine
PROC: 5A0935A Assistance with Respiratory Ventilation, Less than 24 Consecutive Hours, High Flow/Velocity Cannula (ICD-10-PCS; 2021-05-09)
PROC: 0W9930Z Drainage of Right Pleural Cavity with Drainage Device, Percutaneous Approach (ICD-10-PCS; principal; 2021-05-12)
DX: J96.01 Acute respiratory failure with hypoxia (principal); I21.A1 Myocardial infarction type 2; J93.9 Pneumothorax, unspecified; J81.1 Chronic pulmonary edema; J98.11 Atelectasis; I10 Essential (primary) hypertension; C50.919 Malignant neoplasm of unspecified site of unspecified female breast; K04.7 Periapical abscess without sinus; D72.829 Elevated white blood cell count, unspecified; R74.01 Elevation of levels of liver transaminase levels; Z85.3 Personal history of malignant neoplasm of breast; Z91.041 Radiographic dye allergy status
CPT/HCPCS: 32557; 36415; 84145; 96361; 96374; 99291; J3490; 71045; 80048; 80053; 81001; 83880; 84484; 85025; 87086; 93005; 93308; 93321; 93325; 99152; G0378; J0295; J1170; J1885; J2405; J2550; J3010; C1729; C1769; J2060; J2270; J2310; J7030; J7120

== ENCOUNTER → 2021-05-19 | Outpatient (CLI) | payer OTHER, BC | END | disposition home or self-care (01) | LOC: PETCFH 10:19 | PROVIDERS: ATTEND Internal Medicine Hematology & Oncology | DX: C50.812 Malignant neoplasm of overlapping sites of left female breast (principal); N63.20 Unspecified lump in the left breast, unspecified quadrant; K82.8 Other specified diseases of gallbladder | CPT/HCPCS: 78815; A9552 ==

== ENCOUNTER → 2021-05-20 | Outpatient (CLI) | payer OTHER, BC ==
[2021-05-20 08:44] LABS: BASOPHILS % (AUTO) 1 % (0-1); EOSINOPHILS % (AUTO) 2 % (1-7); LYMPHOCYTES % (AUTO) 29 % (22-44); MEAN CORPUSCULAR HEMOGLOBIN 29.1 pg (27.0-34.8); MEAN PLATELET VOLUME 7.7 fL (7.4-10.4); MONOCYTES % (AUTO) 8 % (2-9); NEUTROPHILS % (AUTO) 60 % (42-75); PLATELET COUNT 376 x10^3/uL (130-400); RED BLOOD COUNT 4.65 x10^6/uL (3.82-5.3); RED CELL DISTRIBUTION WIDTH 12.9 % (9.6-15.2)
[2021-05-20 08:48] LABS: ALBUMIN 3.6 g/dL (3.4-5.0); ANION GAP 7 mmol/L (5-15); CALCIUM 8.8 mg/dL (8.5-10.1); CHLORIDE 104 mmol/L (98-107)
[2021-05-20 08:52] LABS: ALANINE AMINOTRANSFERASE 89 U/L (12-78); ALKALINE PHOSPHATASE 161 U/L (45-117); BILIRUBIN,TOTAL 0.5 mg/dL (0.2-1.0); CREATININE 0.64 mg/dL (0.55-1.02)
== END | disposition home or self-care (01) ==
LOC: RAD 08:05
PROVIDERS: ATTEND Internal Medicine Hematology & Oncology
DX: C50.812 Malignant neoplasm of overlapping sites of left female breast (principal)
CPT/HCPCS: 36415; 71046; 80053; 85025

== ENCOUNTER → 2021-05-21 | Outpatient (CLI) | payer OTHER, BC | END | disposition home or self-care (01) | LOC: CFH 07:08 | PROVIDERS: ATTEND Internal Medicine Hematology & Oncology | DX: C50.812 Malignant neoplasm of overlapping sites of left female breast (principal); K80.20 Calculus of gallbladder without cholecystitis without obstruction; R93.89 Abnormal findings on diagnostic imaging of other specified body structures | CPT/HCPCS: 76705 ==

== ENCOUNTER → 2021-05-26 | Outpatient (CLI) | payer OTHER, BC | END | disposition home or self-care (01) | LOC: LAB 07:27 | PROVIDERS: ATTEND Internal Medicine Hematology & Oncology | DX: C50.812 Malignant neoplasm of overlapping sites of left female breast (principal) ==